=== PATIENT | male | born 1980 | race Caucasian/White ===

== ENCOUNTER 2017-06-17 17:59 | Inpatient (IN) | payer MEDICARE ==
[~2017-06-17] VITALS: Ht 175.3 cm; Wt 88.5 kg
--- NOTE | ~2017-06-17 | HP ---
Unit #: [id number] #: [id number] Patient: AJIT FITCH JR [id number] [place] [address] [id number] I MR#: [id number] NAME: AJIT FITCH JR ROOM: P113 Age: 37 Sex: M Admission Date: 06/17/2017 : 1980 Attending Physician: Viji Haynes M.D. Admitting Physician: Viji Haynes M.D. 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 PAST MEDICAL HISTORY None. PAST SURGICAL HISTORY He reports a chest surgery but does not elaborate. SOCIAL HISTORY He smokes two cigarettes daily. Drinks a six pack of beer weekly and daily use of heroin, marijuana and cocaine. He is currently single and living with his grandfather. FAMILY HISTORY Noncontributory. REVIEW OF SYSTEMS CONSTITUTIONAL: No fever or chills. HEENT: Denies any sore throat, ear pain or runny nose. CARDIOVASCULAR: Denies chest pain, irregular heart rhythm or palpitations. CHEST: Denies shortness of breath or cough. No hemoptysis. GASTROINTESTINAL: Denies nausea, vomiting, diarrhea or chronic constipation. ENDOCRINE: Denies history of increased thirst or urination. No recent significant weight loss or gain. GENITOURINARY: Denies dysuria, frequency, or hematuria. SKIN: Denies any rashes. HEMATOLOGIC: Denies history of increased bleeding or bruising. MUSCULOSKELETAL: Denies any hot, swollen joints. No generalized muscle pain. NEUROLOGIC: Denies problems with vision or speech. No frequent, severe headaches. No numbness, tingling or weakness in any extremities. Denies loss of bladder or bowel control. CURRENT MEDICATIONS Risperdal, lithium, Seroquel, Depakote. ALLERGIES Saphris Unit #: [id number] #: [id number] Patient: AJIT FITCH JR PHYSICAL EXAMINATION GENERAL: Alert, oriented, in no acute distress. VITAL SIGNS: Blood pressure 102/67, heart rate 88, respirations 18. HEIGHT: 5 foot 9 inches. WEIGHT: 195 pounds. SKIN: Warm and dry without rash or lesion. HEENT: Normocephalic. TMs not viewed. Oral and nasal passages clear. Conjunctivae clear. PERRLA. EOMs intact. NECK: Supple without lymphadenopathy or thyromegaly. HEART: Regular rate and rhythm without murmur. LUNGS: Clear. ABDOMEN: Soft, nontender, without masses or hepatosplenomegaly. : Not done. EXTREMITIES: No evidence of cyanosis, clubbing or edema. Moves all without focal deficit. NEUROLOGICAL: Grossly within normal limits. Cranial Nerves: II: Visual ansari are intact. III, IV AND : Extraocular movements are intact. Pupils are equal, round and reactive to light. V: Facial sensation is grossly normal. VII: Facial movements and expression are normal. VIII: Auditory acuity grossly intact. IX, X: Uvula is midline. Phonation is normal. XI: Patient shrugs shoulders and turns head normally. XII: Tongue protrudes in the midline. Sensory and Motor Function: Sensory and motor sensation is grossly normal. Motor: moves all extremities well. Coordination: Gait is normal. Deep Tendon Reflexes: Intact. IMPRESSION Psychiatric admission. RECOMMENDATIONS Psychiatric, per psychiatrist. MEDICAL: I see no contraindications to participating in facility's activities. MEDICAL PROGNOSIS Good. MEDICAL CONDITION Stable. Dictated by... Avni Garay/venita TD: 06/18/2017 20:04 JOB #: [id number] Unit #: [id number] #: [id number] Patient: AJIT FITCH JR HISTORY AND PHYSICAL Page 1 of 1 X DAVID AN APRN HISTORY AND PHYSICAL
--- NOTE | ~2017-06-17 | PN ---
Unit #: [id number] #: [id number] Patient: BRINA VÁZQUEZ JR [id number] [facility] [address] [place] [address] [id number] I MR#: [id number] NAME: BRINA VÁZQUEZ JR ROOM: P113 Age: 37 Sex: M Admission Date: 06/17/2017 : 1980 Attending Physician: Viji Haynes M.D. Admitting Physician: Viji Haynes M.D. Primary Care Physician: Primary Care Physician Keila CARVAJAL PROGRESS NOTES DATE June 24, 2017 DISCUSSION Mr. Vázquez is a 37-year-old white male, who was seen today and chart was reviewed and the case was discussed with the staff. He has been doing fairly well with no agitation or irritability, or behavioral problems, and has been cooperative with the treatment recommendations and he has been taking the medications and tolerating them fairly well. MENTAL STATUS EXAMINATION Young white male, who was casually dressed with fair personal hygiene and appears to be in no acute distress or discomfort. He was awake and alert with intact orientation. His mood is anxious with a congruent affect. He denies any suicidal or homicidal ideations. His insight and judgment remain slightly impaired. TREATMENT PLAN 1. We will continue him on his current medications and treatment protocol, and will monitor his response to the medications, and make further adjustments as needed. 2. We will continue to followup. Dictated by... Katherine Fischer/tee TD: 06/25/2017 05:50 JOB #: [id number] Unit #: [id number] #: [id number] Patient: BRINA VÁZQUEZ JR [facility] PROGRESS NOTES Page 1 of 1 X Viji Haynes MD PROGRESS NOTE
--- NOTE | ~2017-06-17 | PN ---
Unit #: [id number] #: [id number] Patient: BRINA VÁZQUEZ JR [id number] [facility] [address] [place] [address] [id number] I MR#: [id number] NAME: BRINA VÁZQUEZ JR ROOM: P113 Age: 37 Sex: M Admission Date: 06/17/2017 : 1980 Attending Physician: Viji Haynes M.D. Admitting Physician: Viji Haynes M.D. Primary Care Physician: Primary Care Physician Keila CARVAJAL PROGRESS NOTES DATE 06/22/2017 DISCUSSION Mr. áVzquez is a 37-year-old white male who was seen today and chart was reviewed and case was discussed with the staff. He has been anxious, withdrawn and rather seclusive to himself. Meanwhile, he has been cooperative with treatment recommendations and has been taking medications and tolerating them fairly well with no reported side effects. MENTAL STATUS EXAMINATION Young white male who was casually dressed with fair personal hygiene and appears to be in no acute distress or discomfort. He was awake and alert on interaction with intact orientation. His mood was anxious with congruent affect. He denies any suicidal or homicidal ideations. His insight and judgement remains slightly impaired. TREATMENT PLAN 1. Will continue on his current medications and treatment protocol. Will monitor his response to the medications and make further adjustments as needed. 2. Will continue to follow up. Dictated by... Viji Haynes M.D. IAA/vincenth TD: 06/22/2017 22:17 JOB #: [id number] Unit #: [id number] #: [id number] Patient: BRINA VÁZQUEZ JR PEACHRISTIANO PROGRESS NOTES Page 1 of 1 X Viji Haynes MD PROGRESS NOTE
--- NOTE | ~2017-06-17 | PN ---
Unit #: [id number] #: [id number] Patient: BRINA VÁZQUEZ JR [id number] [facility] [address] [place] [address] [id number] I MR#: [id number] NAME: BRINA VÁZQUEZ JR ROOM: P113 Age: 37 Sex: M Admission Date: 06/17/2017 : 1980 Attending Physician: Viji Haynes M.D. Admitting Physician: Viji Haynes M.D. Primary Care Physician: Primary Care Physician Keila PERRY NOTES DATE June 23, 2017 DISCUSSION Mr. Vázquez is a 37-year-old white male, with mood disorder and psychosis, who was seen today and chart was reviewed and the case was discussed with the staff. He has been anxious, withdrawn, and seclusive to himself. Meanwhile, he has been cooperative with the treatment recommendations, and he has been taking the medications and tolerating them fairly well with no reported side effects. MENTAL STATUS EXAMINATION Young white male, who was casually dressed with fair personal hygiene and appears to be in no acute distress or discomfort. He was awake and alert with impaired attention and concentration. His mood is anxious with a congruent affect. He denies any suicidal or homicidal ideations, and also denies any auditory or visual hallucinations. His thought processes are disorganized with some looseness of associations and paranoid ideations. His insight and judgment remain significantly impaired. TREATMENT PLAN 1. We will continue him on his current medications and treatment protocol, and will monitor his response to the medications, and make further adjustments as needed. 2. We will continue to followup. Dictated by... Katherine Fischer/tee TD: 06/24/2017 11:44 JOB #: [id number] Unit #: [id number] #: [id number] Patient: BRINA VÁZQUEZ JR ALENA PROGRESS NOTES Page 1 of 1 X Viji Haynes MD PROGRESS NOTE
--- NOTE | ~2017-06-17 | PN ---
Unit #: [id number] #: [id number] Patient: BRINA VÁZQUEZ JR [id number] [facility] [address] [place] [address] [id number] I MR#: [id number] NAME: BRINA VÁZQUEZ JR ROOM: P113 Age: 37 Sex: M Admission Date: 06/17/2017 : 1980 Attending Physician: Viji Haynes M.D. Admitting Physician: Viji Haynes M.D. Primary Care Physician: Primary Care Physician Kiela CARVAJAL PROGRESS NOTES DATE OF SERVICE 06/21/2017 DISCUSSION Mr. Vázquez is a 37-year-old white male who was seen today. Chart was reviewed and case was discussed with the staff. He has been anxious, withdrawn, and rather seclusive to himself. Meanwhile, he has been cooperative with the treatment recommendations and has been taking the medications and tolerating them fairly well with no reported side effects. MENTAL STATUS EXAMINATION Young white male who is casually dressed with fair personal hygiene, appears to be in no acute distress or discomfort. He was awake and alert with intact orientation. His mood is anxious with congruent affect. He denies any suicidal or homicidal ideations. His thought processes were disorganized with some looseness of associations and paranoid ideations. His insight and judgment remain significantly impaired. TREATMENT PLAN 1. We will continue him on his current medications and treatment protocol. We will monitor his response and make further adjustments as needed. 2. We will continue to follow up. Dictated by... Katherine Fischer/malik TD: 06/21/2017 10:44 JOB #: [id number] Unit #: [id number] #: [id number] Patient: BRINA VÁZQUEZ JR [facility] PROGRESS NOTES Page 1 of 1 X Viji Haynes MD PROGRESS NOTE
--- NOTE | ~2017-06-17 | PA ---
Unit #: [id number] #: [id number] Patient: BRINA VÁZQUEZ JR [id number] [facility] [address] [place] [address] [id number] I MR#: [id number] NAME: BRINA VÁZQUEZ JR ROOM: P113 Age: 37 Sex: M Admission Date: 06/17/2017 : 1980 Date of Assessment: Attending Physician: Viji Haynes M.D. Admitting Physician: Viji Haynes M.D. Primary Care Physician: Primary Care Physician No PSYCHIATRIC ASSESSMENT DATE OF SERVICE 06/18/2017. IDENTIFYING DATA Mr. Vázquez is a 37-year-old single white male, who is a resident of [place], [place], and was transferred to us from [facility] [place] [facility] Emergency Room. CHIEF COMPLAINT "I'm hearing voices." HISTORY OF PRESENT ILLNESS Mr. Vázquez is a 37-year-old white male with long history of chronic mental illness, who is known to us from previous encounter, was transferred to us from [facility] [place] [facility]. He presented with psychosis and depressive symptoms and reports that he has no friends, no food left, and no money left and that he called 911 from home today due to suicidal ideation with a plan to jump from a bridge and also reports anger and resentment toward family members at home and reports feeling like he is capable of hurting them, but denies any particular intent and plan. He reports that family members owe him money and he has history of auditory and visual hallucinations and currently reports seeing black flashes and hearing voices telling him to kill himself. He was seen to be exhibiting bizarre behavior on evaluation by me as he was pacing the hallways and was laughing inappropriately and was unable to carry on any meaningful conversation and has a long history of schizophrenia and appears to be decompensating primarily due to poor social support system and lack of compliance with treatment recommendations including medications. SUBSTANCE ABUSE HISTORY The patient denies any alcohol or drug abuse. PAST PSYCHIATRIC HISTORY The patient has had several inpatient psychiatric hospitalization over years, mostly at [facility] and has been diagnosed and treated for schizophrenia. Review of the medical records indicate that he is supposed to be on Risperdal, lithium, Depakote, and Seroquel, but has been noncompliant with medications and as such, has been decompensating. PAST MEDICAL HISTORY The patient's medical history is insignificant. ALLERGIES Unit #: [id number] #: [id number] Patient: BRINA VÁZQUEZ JR. PERSONAL AND SOCIAL HISTORY A 37-year-old white male, who reports that he is single, unemployed, and essentially homeless and has been living with his grandparents, but reports having poor social support system. MENTAL STATUS EXAMINATION Young white male, who was casually dressed with fair personal hygiene, appears to be in no acute distress or discomfort. He was awake and alert on interaction with intact orientation. His mood was anxious and depressed with a congruent affect. His speech was slow and restricted in content. His thought processes were disorganized with some looseness of associations and paranoid ideations and suicidal ideations. His insight and judgment remain significantly impaired. DIAGNOSTIC IMPRESSION Psychiatric: Chronic paranoid schizophrenia by history. Medical: None. Stressors: Moderate psychosocial stressors. TREATMENT PLAN 1. The patient has presented with a history of chronic mental illness and has been decompensating and will need inpatient hospitalization for safety and stabilization. We will start him back on his home medications and we will adjust the medications and monitor response. 2. Supportive therapy was provided to the patient. 3. Supportive therapy was provided to the patient. 4. Safe, structured, and nourishing environment will be provided. ESTIMATED LENGTH OF STAY 5 to 7 days. ABILITY TO HELP SELF Limited. WILLINGNESS TO HELP SELF The patient appears to be willing to help self. STRENGTHS 1. Communicative. 2. Cooperative. PROBLEMS 1. Chronic dysphoric symptoms. 2. Poor social support system. DISCHARGE CRITERIA This will be contingent upon the patient's ability to show resolution of his depression and psychosis and his ability to stay safe to himself, particularly after discharge from the hospital. Dictated by... Katherine Fischer/naga Unit #: [id number] #: [id number] Patient: BRINA VÁZQUEZ JR TD: 06/18/2017 14:56 JOB #: [id number] PSYCHIATRIC ASSESSMENT Page 1 of 1 X Viji Haynes MD X PSYCHIATRIC ASSESSMENT
--- NOTE | ~2017-06-17 | PN ---
Unit #: [id number] #: [id number] Patient: BRINA VÁZQUEZ JR [id number] [facility] [address] [place] [address] [id number] I MR#: [id number] NAME: BRINA VÁZQEUZ JR ROOM: P113 Age: 37 Sex: M Admission Date: 06/17/2017 : 1980 Attending Physician: Viji Haynes M.D. Admitting Physician: Viji Haynes M.D. Primary Care Physician: Primary Care Physician Keila CARVAJAL PROGRESS NOTES DATE OF SERVICE 06/27/2017 DISCUSSION Mr. Vázquez is a 37-year-old white male who was seen today. Chart was reviewed and case was discussed with staff. He has been anxious, withdrawn, and rather seclusive to himself. Meanwhile, he has been cooperative with treatment recommendations and has been taking the medications and tolerating them fairly well with no reported side effects. MENTAL STATUS EXAMINATION Young white male who is casually dressed with fair personal hygiene, appears to be in no acute distress or discomfort. The patient was awake and alert on interaction with intact orientation. His mood is anxious with congruent affect. His speech is slow and goal-directed. He denies any suicidal or homicidal ideations and also denies any auditory or visual hallucinations. His insight and judgment remain slightly impaired. TREATMENT PLAN 1. We will continue him on his current medications and treatment protocol. We will monitor his response to the medications and make further adjustments as needed. 2. We will continue to follow up. Dictated by... Katherine Fischer/malik TD: 06/27/2017 08:54 JOB #: [id number] Unit #: [id number] #: [id number] Patient: BRINA VÁZQUEZ JR PEACHRISTIANO PROGRESS NOTES Page 1 of 1 X Viji Haynes MD PROGRESS NOTE
--- NOTE | ~2017-06-17 | DS ---
Unit #: [id number] #: [id number] Patient: BRINA VÁZQUEZ JR [id number] [facility] [place] [address] [id number] I MR#: [id number] NAME: BRINA VÁZQUEZ JR ROOM: P113 Age: 37 Sex: M Admission Date: 06/17/2017 : 1980 Discharge Date: 06/28/2017 Attending Physician: Viji Haynes M.D. Primary Care Physician: Primary Care Physician No DISCHARGE SUMMARY IDENTIFYING DATA Mr. Vázquez is a 37-year-old single white male who is a resident of [place], [place] and was transferred to us from the emergency room. HISTORY OF PRESENT ILLNESS Please see initial psychiatric evaluation. PAST PSYCHIATRIC HISTORY Please see initial psychiatric evaluation. PAST MEDICAL HISTORY Please see initial psychiatric evaluation. HOSPITAL COURSE The patient was admitted to the adult psychiatric unit at [facility] dougie [facility] and was oriented to the hospital environment. Routine p.r.n. medications were initiated and started back on his home medications as he was seen to be on quite a bit of psychotropic medications, particularly combination antipsychotic which is consistent with his long history of chronic mental illness and failure to respond to most of the medications and even with those medications, he was still seen to be quite bizarre, disorganized. However, he was compliant and was not showing any tolerability issues and was rather seen to be calm and seclusive to himself but was not seen to be danger to self or anyone else and after observation and adjustment and regulation of the medications, it was decided that he will continue treatment on outpatient basis. DISCHARGE DIAGNOSES PSYCHIATRIC: Schizoaffective disorder, bipolar type, most recent episode depressed, recurrent, moderate, with psychosis. MEDICAL: None. STRESSORS: Mild psychosocial stressors. DISCHARGE MEDICATIONS 1. Risperdal 3 mg b.i.d. for bipolar. 2. Seroquel 100 mg t.i.d. for bipolar. 3. [place] 300 mg b.i.d. for bipolar. 4. Depakote 500 mg t.i.d. for bipolar. 5. Artane 2 mg t.i.d. for EPS. Unit #: [id number] #: [id number] Patient: VÁZQUEZ JR,BRINA W CONDITION AT DISCHARGE Stable. PROGNOSIS Fair. Dictated by... Katherine Fischer/reggie TD: 06/29/2017 16:24 JOB #: [id number] DISCHARGE SUMMARY Page 1 of 1 X Viji Haynes MD X DISCHARGE SUMMARY
--- NOTE | ~2017-06-17 | PN ---
Unit #: [id number] #: [id number] Patient: BRINA VÁZQUEZ JR [id number] [facility] [address] [place] [address] [id number] I MR#: [id number] NAME: BRINA VÁZQUEZ JR ROOM: P113 Age: 37 Sex: M Admission Date: 06/17/2017 : 1980 Attending Physician: Viji Haynes M.D. Admitting Physician: Viji Haynes M.D. Primary Care Physician: Primary Care Physician Keila CARVAJAL PROGRESS NOTES DATE 06/26/2017 DISCUSSION Mr. Vázquez is a 37-year-old white male who was seen today and chart was reviewed and case was discussed with the staff. He has been anxious, withdrawn and rather seclusive to himself. Meanwhile, he has been cooperative with treatment recommendations and has been taking medications and tolerating them fairly well with no reported side effects. MENTAL STATUS EXAMINATION Young white male who was casually dressed with fair personal hygiene and appears to be in no acute distress or discomfort. He was awake and alert on interaction with intact orientation. His mood was anxious with congruent affect. His speech is slow and tangential. His thought processes were disorganized with some looseness of associations and flight of ideas. His insight and judgement remains significantly impaired. TREATMENT PLAN 1. Will continue on current medications and treatment protocol. Will monitor her response to the medications and make further adjustments as needed. 2. Will continue to follow up. Dictated by... Katherine Fischer/reggie TD: 06/26/2017 18:10 JOB #: [id number] Unit #: [id number] #: [id number] Patient: BRINA VÁZQUEZ JR ALENA PROGRESS NOTES Page 1 of 1 X Viji Haynes MD PROGRESS NOTE
--- NOTE | ~2017-06-17 | PN ---
Unit #: [id number] #: [id number] Patient: BRINA VÁZQUEZ JR [id number] [facility] [address] [place] [address] [id number] I MR#: [id number] NAME: BRINA VÁZQUEZ JR ROOM: P113 Age: 37 Sex: M Admission Date: 06/17/2017 : 1980 Attending Physician: Viji Haynes M.D. Admitting Physician: Viji Haynes M.D. Primary Care Physician: Primary Care Physician Keila CARVAJAL PROGRESS NOTES DATE OF SERVICE 06/19/2017 DISCUSSION Mr. Vázquez is a 37-year-old white male who was seen today. Chart was reviewed and case was discussed with the staff. He remains anxious, withdrawn, and rather seclusive to himself. Meanwhile, he has been cooperative and has been pacing the hallways and has been exhibiting bizarre behavior. MENTAL STATUS EXAMINATION Young white male who is casually dressed with fair personal hygiene, appears to be in no acute distress or discomfort. The patient was awake and alert with impaired attention and concentration. His mood is anxious with congruent affect. Speech is slow and restricted in content. He denies any suicidal or homicidal ideations and also denies any auditory or visual hallucinations. His insight and judgment remain slightly impaired. TREATMENT PLAN 1. We will continue him on his current medications and treatment protocol. We will monitor his response to the medications and make further adjustments as needed. 2. We will continue to follow up. Dictated by... Katherine Fischer/malik TD: 06/19/2017 08:31 JOB #: [id number] Unit #: [id number] #: [id number] Patient: BRINA VÁZQUEZ JR [facility] PROGRESS NOTES Page 1 of 1 X Viji Haynes MD PROGRESS NOTE
--- NOTE | ~2017-06-17 | PN ---
Unit #: [id number] #: [id number] Patient: BRINA VÁZQUEZ JR [id number] [facility] [address] [place] [address] [id number] I MR#: [id number] NAME: BRINA VÁZQUEZ JR ROOM: P113 Age: 37 Sex: M Admission Date: 06/17/2017 : 1980 Attending Physician: Viji Haynes M.D. Admitting Physician: Viji Haynes M.D. Primary Care Physician: Primary Care Physician Keila CARVAJAL PROGRESS NOTES DATE OF SERVICE 06/20/2017 DISCUSSION Mr. Vázquez is a 37-year-old white male who was seen today. Chart was reviewed and case was discussed with the staff. He has been anxious, withdrawn, and rather seclusive to himself. He has been cooperative with the treatment recommendations as he has been taking the medications and tolerating them fairly well with no reported side effects. MENTAL STATUS EXAMINATION Young white male who is casually dressed with fair personal hygiene, appears to be in no acute distress or discomfort. He was awake and alert with impaired attention and concentration. His mood is anxious with congruent affect. Speech is slow and goal-directed. He denies any suicidal or homicidal ideations and also denies any auditory or visual hallucinations. His insight and judgment remain slightly impaired. TREATMENT PLAN 1. We will continue him on his current medications and treatment protocol. We will monitor his response to the medications and make further adjustments as needed. 2. We will continue to follow up. Dictated by... Katherine Fischer/malik TD: 06/20/2017 13:32 JOB #: [id number] Unit #: [id number] #: [id number] Patient: BRINA VÁZQUEZ JR [facility] PROGRESS NOTES Page 1 of 1 X Viji Haynes MD PROGRESS NOTE
--- NOTE | ~2017-06-17 | PN ---
Unit #: [id number] #: [id number] Patient: BRINA VÁZQUEZ JR [id number] [facility] [address] [place] [address] [id number] I MR#: [id number] NAME: BRINA VÁZQUEZ JR ROOM: P113 Age: 37 Sex: M Admission Date: 06/17/2017 : 1980 Attending Physician: Viji Haynes M.D. Admitting Physician: Viji Haynes M.D. Primary Care Physician: Primary Care Physician Keila CARVAJAL PROGRESS NOTES DATE OF SERVICE: 06/25/2017 SUBJECTIVE Mr. Vázquez is a 37-year-old white male, who was seen today and chart was reviewed and the case was discussed with the staff. He has been doing fairly well with no agitation, irritability and has been pacing the hallways; however, no physical aggression has been reported. Meanwhile, he has been taking medications and tolerating them fairly well with no reported side effects. MENTAL STATUS EXAMINATION Young white male who was casually dressed with fair personal hygiene, appears to be in no acute distress or discomfort. He was awake and alert on interaction with intact orientation. His mood was anxious with a congruent affect. He denies any suicidal or homicidal ideations. His insight and judgment remain slightly impaired. TREATMENT PLAN 1. We will continue him on his current medications and treatment protocol. We will monitor his response to the medications and make further adjustments as needed. 2. We will continue to follow up. Dictated by... Katherine Fischer/naga TD: 06/25/2017 08:20 JOB #: [id number] Unit #: [id number] #: [id number] Patient: BRINA VÁZQUEZ JR [facility] PROGRESS NOTES Page 1 of 1 X Viji Haynes MD PROGRESS NOTE
[2017-06-19 12:23] LABS: BASOPHIL# 0.1 X10e3 (0-0.3); BASOPHIL% 0.9 % (0-2.5); DIFF IND NO; EOSINOPHIL# 0.2 X10e3 (0-0.7); EOSINOPHIL% 2.1 % (0.0-7.0); HEMOGLOBIN 13.7 gm/dL (13.0-16.0); LYMPHOCYTE# 2.3 X10e3 (1.0-3.5); LYMPHOCYTE% 28.4 % (17.0-45.0); MEAN CELL VOLUME 90.3 FL (83-96); MEAN CORPUSCULAR HEMOGLOBIN 30.2 PG (28-34); MEAN CORPUSCULAR HGB CONC 33.5 g/dL (30-36); MEAN PLATELET VOLUME 8.5 FL (6.5-11.5); MONOCYTE# 0.5 X10e3 (0-1.0); MONOCYTE% 6.2 % (3.0-12.0); NEUTROPHIL# 5.1 X10e3 (1.5-7.1); NEUTROPHIL% 62.4 % (40-75); PLATELET COUNT 195 X10e3 (140-420); RED BLOOD COUNT 4.54 X10e (3.90-5.60); RED CELL DISTRIBUTION WIDTH 13.9 % (11.0-15.5); WHITE BLOOD COUNT 8.2 X10e3 (4.0-10.5)
[2017-06-19 12:34] LABS: ALBUMIN SERUM 3.6 g/dL (3.5-5.0); BILIRUBIN,TOTAL 0.3 mg/dL (0.2-2.0); BUN/CREATININE RATIO 16.25; CALCIUM SERUM 8.8 mg/dL (8.4-10.2); CREATININE SERUM 0.8 mg/dL (0.6-1.4); GLOM FILT RATE Estimated 115.8 mL/min (>60); POTASSIUM 4.7 mmol/L (3.5-5.1); PROTEIN TOTAL SERUM 6.1 g/dL (6.0-8.3)
== END 2017-06-28 09:52 | disposition home or self-care (01) | DRG 885 ==
LOC: P1S 20:43
PROVIDERS: Psychiatry & Neurology Psychiatry
DX: F25.0 Schizoaffective disorder, bipolar type (principal); R45.851 Suicidal ideations; F17.210 Nicotine dependence, cigarettes, uncomplicated
CPT/HCPCS: 80053; 85025

== ENCOUNTER 2017-07-23 09:00 | Inpatient (IN) | payer MEDICARE, OTHER ==
[~2017-07-23] VITALS: Ht 175.3 cm; Wt 94.3 kg
--- NOTE | ~2017-07-23 | PN ---
Unit #: [id number] #: [id number] Patient: BRINA VÁZQUEZ JR [id number] [facility] [address] [place] [address] [id number] I MR#: [id number] NAME: BRINA VÁZQUEZ JR ROOM: P110 Age: 37 Sex: M Admission Date: 07/23/2017 : 1980 Attending Physician: Viji Haynes M.D. Admitting Physician: Viji Haynes M.D. Primary Care Physician: Primary Care Physician No ALENA PROGRESS NOTES DATE OF SERVICE 07/27/2017 DISCUSSION Mr. Vázquez is a 37-year-old white male who was seen today. Chart was reviewed and case was discussed with the staff. He has been anxious, withdrawn, and rather seclusive to himself. Meanwhile, he has been cooperative with the treatment recommendations and has been taking the medications and tolerating them fairly well with no reported side effects. MENTAL STATUS EXAMINATION Young white male who is casually dressed with fair personal hygiene, appears to be in no acute distress or discomfort. He was awake and alert on interaction with intact orientation. His mood is anxious with congruent affect. He denies any suicidal or homicidal ideations. His insight and judgment remain slightly impaired. TREATMENT PLAN 1. We will continue him on his current medications and treatment protocol. We will monitor his response to the medications and make further adjustments as needed. 2. We will continue to follow up. Dictated by... Viji Haynes M.D. IAA/malik TD: 07/27/2017 16:10 JOB #: [id number] [facility] PROGRESS NOTES Page 1 of 1 X Viji Haynes MD X PROGRESS NOTE
--- NOTE | ~2017-07-23 | PN ---
Unit #: [id number] #: [id number] Patient: BRINA VÁZQUEZ JR [id number] [facility] [address] [place] [address] [id number] I MR#: [id number] NAME: BRINA VÁZQUEZ JR ROOM: P121 Age: 37 Sex: M Admission Date: 07/23/2017 : 1980 Attending Physician: Viji Haynes M.D. Admitting Physician: Viji Haynes M.D. Primary Care Physician: Primary Care Physician Keila CARVAJAL PROGRESS NOTES DATE OF SERVICE 07/25/2017 DISCUSSION Mr. Vázquez is a 37-year-old white male who was seen today. Chart was reviewed and case was discussed with the staff. He has been anxious, withdrawn, and rather seclusive to himself. Meanwhile, he has been cooperative with the treatment recommendations and has been taking the medications and tolerating them fairly well with no reported side effects. MENTAL STATUS EXAMINATION Young white male who is casually dressed with fair personal hygiene, appears to be in no acute distress or discomfort. He was awake and alert on interaction with intact orientation. His mood is anxious with congruent affect. His speech is slow and goal-directed. He denies any suicidal or homicidal ideation. We will also denies any auditory or visual hallucinations. His insight and judgment remain slightly impaired. TREATMENT PLAN 1. We will continue him on his current medications and treatment protocol. We will monitor his response and make further adjustments as needed. 2. We will continue to follow up. Dictated by... Katherine Fischer/malik TD: 07/25/2017 11:05 JOB #: [id number] Unit #: [id number] #: [id number] Patient: BRINA VÁZQUEZ JR [facility] PROGRESS NOTES Page 1 of 1 X Viji Haynes MD PROGRESS NOTE
--- NOTE | ~2017-07-23 | PN ---
Unit #: [id number] #: [id number] Patient: BRINA VÁZQUEZ JR [id number] [facility] [address] [place] [address] [id number] I MR#: [id number] NAME: BRINA VÁZQUEZ JR ROOM: P110 Age: 37 Sex: M Admission Date: 07/23/2017 : 1980 Attending Physician: Viji Haynes M.D. Admitting Physician: Viji Haynes M.D. Primary Care Physician: Primary Care Physician Keila CARVAJAL PROGRESS NOTES DATE OF SERVICE: 07/31/2017 SUBJECTIVE Mr. Vázquez is a 37-year-old white male, who was seen today and chart was reviewed, and case was discussed with the staff. He has been anxious, withdrawn, and rather seclusive to himself. Meanwhile, he has been cooperative with treatment recommendation and has been taking medications and tolerating them fairly well with no reported side effects. MENTAL STATUS EXAMINATION Young white male who was casually dressed with fair personal hygiene, appears to be in no acute distress or discomfort. He was awake and alert on interaction with intact orientation. His mood was anxious with a congruent affect. He denies any suicidal or homicidal ideations. His insight and judgment remain slightly impaired. TREATMENT PLAN 1. We will continue on his current medications and treatment protocol. We will monitor his response to medications and make further adjustments as needed. 2. We will continue to follow up. Dictated by... Katherine Fischer/naga TD: 08/01/2017 01:53 JOB #: [id number] [facility] PROGRESS NOTES Page 1 of 1 X Viji Haynes MD X PROGRESS NOTE
--- NOTE | ~2017-07-23 | PN ---
Unit #: [id number] #: [id number] Patient: BRINA VÁZQUEZ JR [id number] [facility] [address] [place] [address] [id number] I MR#: [id number] NAME: BRINA VÁZQUEZ JR ROOM: P110 Age: 37 Sex: M Admission Date: 07/23/2017 : 1980 Attending Physician: Viji Haynes M.D. Admitting Physician: Viji Haynes M.D. Primary Care Physician: Primary Care Physician Keila CARVAJAL PROGRESS NOTES DATE OF SERVICE 07/26/2017 DISCUSSION Mr. Vázquez is a 37-year-old white male who was seen today. Chart was reviewed and case was discussed with the staff. He has been anxious and withdrawn though has not shown any agitation or irritability and has been cooperative with treatment recommendations as he has been taking the medications and tolerating them fairly well with no reported side effects. MENTAL STATUS EXAMINATION Young white male who is casually dressed with fair personal hygiene, appears to be in no acute distress or discomfort. He was awake and alert on interaction with intact orientation. His mood is anxious with congruent affect. His speech is slow and goal-directed. He denies any suicidal or homicidal ideations and also denies any auditory or visual hallucinations. His insight and judgment remain slightly impaired. TREATMENT PLAN 1. We will continue him on his current medications and treatment protocol. We will monitor his response to the medications and make further adjustments as needed. 2. We will continue to follow up. Dictated by... Katherine Fischer/malik TD: 07/26/2017 11:28 JOB #: [id number] Unit #: [id number] #: [id number] Patient: BRINA VÁZQUEZ JR [facility] PROGRESS NOTES Page 1 of 1 X Viji Haynes MD X PROGRESS NOTE
--- NOTE | ~2017-07-23 | HP ---
Unit #: [id number] #: [id number] Patient: AJIT FITCH JR [id number] [place] [address] [id number] I MR#: [id number] NAME: AJIT FITCH JR ROOM: P121 Age: 37 Sex: M Admission Date: 07/23/2017 : 1980 Attending Physician: Viji Haynes M.D. Admitting Physician: Viji Haynes M.D. Primary Care Physician: Primary Care Physician No HISTORY AND PHYSICAL HISTORY OF PRESENT ILLNESS Ajit is a 37 year old admitted to [address] [place] [address] with psychotic behavior. He has had numerous admissions to this facility. He is a poor historian so his history is taken from his chart. PAST MEDICAL HISTORY Nothing significant. PAST SURGICAL HISTORY Left shoulder after a dislocation. ALLERGIES Saphris. SOCIAL HISTORY He smokes on occasion. Drinks alcohol and has a history of marijuana use. FAMILY HISTORY Medically noncontributory. REVIEW OF SYSTEMS He does not answer questions appropriately. There are no reports of nausea, vomiting or diarrhea. He has had no cough or increased temperature. CURRENT MEDICATIONS 1. Depakote 500 mg b.i.d. 2. [place] 300 mg b.i.d. 3. Risperdal 3 mg b.i.d. 4. Artane 2 mg t.i.d. 5. Seroquel 100 mg t.i.d. 6. Milk of Magnesia p.r.n. 7. Maalox p.r.n. 8. Tylenol p.r.n. 9. Nicotine patch 14 mg daily. PHYSICAL EXAMINATION GENERAL: Alert, well-nourished, in no apparent distress. VITAL SIGNS: Blood pressure 110/64, heart rate 80, respirations 16, temperature 98.6. WEIGHT: 208. HEIGHT: 5 feet 9 inches. SKIN: Warm and dry without rash or lesion. HEENT: Normocephalic. TMs not viewed. Oral and nasal passages clear. Unit #: [id number] #: [id number] Patient: AJIT FITCH JR Conjunctivae clear. PERRLA. EOMs intact. NECK: Supple without lymphadenopathy or thyromegaly. HEART: Regular rate and rhythm without murmur. LUNGS: Clear. ABDOMEN: Soft, nontender. : Not done. EXTREMITIES: No evidence of cyanosis, clubbing or edema. Moves all without focal deficit. NEUROLOGICAL: Unable to complete extended exam. He does move all extremities without focal deficit. Hand cranberry grower is equal and gait is normal. IMPRESSION Psychiatric admission. RECOMMENDATIONS PSYCHIATRIC: Per psychiatrist. MEDICAL: See no contraindication to participate in facility's activities. MEDICAL PROGNOSIS Good. MEDICAL CONDITION Stable. Dictated by... Ann Reilly P.A.-C. for Katherine Xie/reggie TD: 07/23/2017 17:30 JOB #: [id number] HISTORY AND PHYSICAL Page 1 of 1 X Ann Reilly PA X HISTORY AND PHYSICAL
--- NOTE | ~2017-07-23 | PN ---
Unit #: [id number] #: [id number] Patient: BRINA VÁZQUEZ JR [id number] [facility] [address] [place] [address] [id number] I MR#: [id number] NAME: BRINA VÁZQUEZ JR ROOM: P110 Age: 37 Sex: M Admission Date: 07/23/2017 : 1980 Attending Physician: Viji Haynes M.D. Admitting Physician: Viji Haynes M.D. Primary Care Physician: Primary Care Physician Keila CARVAJAL PROGRESS NOTES DATE 07/30/2017 DISCUSSION Mr. Vázquez is a 37-year-old white male who was seen today and chart was reviewed and case was discussed with the staff. He has been anxious, withdrawn and rather seclusive to himself. Meanwhile, he has been cooperative with treatment recommendations and has been taking medications and tolerating them fairly well with no reported side effects. MENTAL STATUS EXAMINATION Young white male who was casually dressed with fair personal hygiene and appears to be in no acute distress or discomfort. He was awake and alert with impaired attention and concentration. His mood was anxious with congruent affect. His speech is slow and restricted in content. His insight and judgement remains significantly impaired. TREATMENT PLAN 1. Will continue on his current medications and treatment protocol. Will monitor his response to the medications and make further adjustments as needed. 2. Will continue to follow up. Dictated by... Viji Haynes M.D. IAA/reggie TD: 07/30/2017 20:52 JOB #: [id number] Unit #: [id number] #: [id number] Patient: BRINA VÁZQUEZ JR [facility] PROGRESS NOTES Page 1 of 1 X Viji Haynes MD X PROGRESS NOTE
--- NOTE | ~2017-07-23 | PN ---
Unit #: [id number] #: [id number] Patient: BRINA VÁZQUEZ JR [id number] [facility] [address] [place] [address] [id number] I MR#: [id number] NAME: BRINA VÁZQUEZ JR ROOM: P110 Age: 37 Sex: M Admission Date: 07/23/2017 : 1980 Attending Physician: Viji Haynes M.D. Admitting Physician: Viji Haynes M.D. Primary Care Physician: Primary Care Physician No [facility] PROGRESS NOTES DATE July 28, 2017 DISCUSSION Mr. Vázquez is a 37-year-old white male, who was seen today and chart was reviewed and the case was discussed with the staff. He has been anxious, withdrawn, and rather seclusive to himself but has not shown any agitation or aggression. He has been cooperative with the treatment recommendations, and he has been taking the medications and tolerating them fairly well. MENTAL STATUS EXAMINATION Young white male, who was casually dressed with fair personal hygiene and appears to be in no acute distress or discomfort. He was awake and alert with intact orientation. His mood is anxious with a congruent affect. He denies any suicidal or homicidal ideations. His insight and judgment remain slightly impaired. TREATMENT PLAN 1. We will continue him on his current treatment protocol, and will monitor his response to the medications, and make further adjustments as needed. 2. We will continue to followup. Dictated by... Katherine Fischer/tee TD: 07/30/2017 10:09 JOB #: [id number] Unit #: [id number] #: [id number] Patient: BRINA VÁZQUEZ JR [facility] PROGRESS NOTES Page 1 of 1 X Viji Haynes MD X PROGRESS NOTE
--- NOTE | ~2017-07-23 | PN ---
Unit #: [id number] #: [id number] Patient: BRINA VÁZQUEZ JR [id number] [facility] [address] [place] [address] [id number] I MR#: [id number] NAME: BRINA VÁZQUEZ JR ROOM: P110 Age: 37 Sex: M Admission Date: 07/23/2017 : 1980 Attending Physician: Viji Haynes M.D. Admitting Physician: Viji Haynes M.D. Primary Care Physician: Primary Care Physician Keila CARVAJAL PROGRESS NOTES DATE OF SERVICE: 07/29/2017 SUBJECTIVE Mr. Vázquez is a 37-year-old white male with mood disorder and psychosis, who was seen today and chart was reviewed, and case was discussed with the staff. He has been anxious, withdrawn, and rather seclusive to himself. Meanwhile, he has been cooperative with treatment recommendations and has been taking medications and tolerating them fairly well with no reported side effects. MENTAL STATUS EXAMINATION Young white male who was casually dressed with fair personal hygiene, appears to be in no acute distress or discomfort. He was awake and alert on interaction with intact orientation. His mood was anxious with a congruent affect. His speech was slow and goal directed. He denies any suicidal or homicidal ideation and also denies any auditory or visual hallucinations. His insight and judgment remain slightly impaired. TREATMENT PLAN 1. We will continue on his current medications and treatment protocol. We will monitor his response and make further adjustments as needed. 2. We will continue to follow up. Dictated by... Katherine Fischer/naga TD: 07/31/2017 02:20 JOB #: [id number] [facility] PROGRESS NOTES Page 1 of 1 X Viji Haynes MD PROGRESS NOTE
--- NOTE | ~2017-07-23 | PA ---
Unit #: [id number] #: [id number] Patient: BRINA VÁZQUEZ JR [id number] [facility] [address] [place] [address] [id number] I MR#: [id number] NAME: BRINA VÁZQUEZ JR ROOM: P121 Age: 37 Sex: M Admission Date: 07/23/2017 : 1980 Date of Assessment: 07/23/2017 Attending Physician: Viji Haynes M.D. Admitting Physician: Viji Haynes M.D. Primary Care Physician: Primary Care Physician No PSYCHIATRIC ASSESSMENT DATE OF SERVICE 07/23/2017. IDENTIFYING DATA Mr. Vázquez is a 37-year-old single, disabled, white male with long history of chronic mental illness, who is known to us from previous encounter and is a resident of [place], [place], and was self-referred to the hospital on a voluntary basis. CHIEF COMPLAINT "I've been staying in [place] since Saturday and it is just a cultural shock." HISTORY OF PRESENT ILLNESS Mr. 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 My medication makes me feel drowsy and I have been suicidal and have had thoughts about overdosing and I don't know if I will do it or not. I don't feel that I would do that, though I just don't like the way things are going. I have been hearing things. I have been conversating with the voices in my head. They have been putting me down, that is about it. I used to smoke marijuana, I found a nuñez by the bus stop." The patient was seen to be acutely psychotic upon presentation with increasing depression, psychosis, hallucinations, and suicidal ideation and was seen to be a danger to self and therefore, recommendation for inpatient level of care was made and the patient was stepped up to the inpatient unit. SUBSTANCE ABUSE HISTORY The patient reports occasional experimentation with alcohol and cannabis, but denies any regular drug abuse. PAST PSYCHIATRIC HISTORY The patient has had a history of multiple and numerous inpatient psychiatric hospitalizations at [facility] and has been diagnosed and treated with schizoaffective disorder. Review of the medical records indicate currently he is on a combination of Risperdal, lithium, Seroquel, and Depakote, though it is not clear if he has been compliant with the medications. PAST MEDICAL HISTORY Unit #: [id number] #: [id number] Patient: BRINA VÁZQUEZ JR The patient's medical history is insignificant. ALLERGIES Saphris. PERSONAL AND SOCIAL HISTORY A 37-year-old white male, who reports that he is single, unemployed, and has been living in a homeless custodial and has poor social support system. MENTAL STATUS EXAMINATION Young white male, who was casually dressed with fair personal hygiene, appears to be in no acute distress or discomfort. He was awake and alert on interaction with intact orientation to time, place, and person. His mood was anxious and depressed with a congruent affect. His speech was slow and restricted in content. His thought processes were disorganized with some looseness of associations and flight of ideas and paranoid ideations and delusional behavior and suicidal ideations. His insight and judgment remain significantly impaired. DIAGNOSTIC IMPRESSION Psychiatric: Schizoaffective disorder, bipolar type, most recent episode depressed, recurrent, moderate, with psychosis. Medical: None. Stressors: Moderate psychosocial stressors. TREATMENT PLAN 1. The patient has presented with a history of mood disorder and psychosis and has been decompensating and will need inpatient hospitalization for safety and stabilization. We will start him back on his home medications and monitor response and make further adjustments as needed. 2. Supportive therapy was provided to the patient. 3. Safe, structured, and nourishing environment will be provided. ESTIMATED LENGTH OF STAY 5 to 7 days. ABILITY TO HELP SELF Limited. WILLINGNESS TO HELP SELF The patient appears to be willing to help self. STRENGTHS 1. Communicative. 2. Cooperative. PROBLEMS 1. Chronic dysphoric symptoms. 2. Poor social support system. DISCHARGE CRITERIA This will be contingent upon the patient's ability to show resolution of his depression and anxiety and his ability to stay safe to himself, particularly after discharge from the hospital. Dictated by... Unit #: [id number] #: [id number] Patient: BRINA VÁZQUEZ JR, M.D. IAA/naga TD: 07/24/2017 20:39 JOB #: [id number] PSYCHIATRIC ASSESSMENT Page 1 of 1 X Viji Hayens MD PSYCHIATRIC ASSESSMENT
--- NOTE | ~2017-07-23 | DS ---
Unit #: [id number] #: [id number] Patient: BRINA VÁZQUEZ JR [id number] [facility] [address] [id number] I MR#: [id number] NAME: BRINA VÁZQUEZ JR ROOM: P110 Age: 37 Sex: M Admission Date: 07/23/2017 : 1980 Discharge Date: 08/01/2017 Attending Physician: Viji Haynes M.D. Primary Care Physician: Primary Care Physician No DISCHARGE SUMMARY IDENTIFICATION DATA Mr. Vázquez is a 37-year-old single disabled white male who is a resident of [place], [place], and was self-referred to the hospital. DISCHARGE DIAGNOSES PSYCHIATRIC: Schizoaffective disorder, bipolar type, recent episode, depressed, recurrent, moderate, with psychosis. MEDICAL: None. STRESSORS: Mild psychosocial stressors. HISTORY OF PRESENT ILLNESS Same as in initial psychiatric evaluation. PAST PSYCHIATRIC HISTORY Same as in initial psychiatric evaluation. PAST MEDICAL HISTORY Same as in initial psychiatric evaluation. HOSPITAL COURSE The patient was admitted to the adult psychiatric unit at [facility] dougie Ramos and was oriented to the hospital environment. Routine p.r.n. medications were initiated, and he was started back on his home medications including his Risperdal and lithium, and lithium was actually increased to 450 mg twice a day, and he was closely monitored. Depakote was maintained, and he was seen to be doing much better and was calm and cooperative, and compliant with treatment recommendations. As such it was decided that she will be discharged home. We will continue treatment on outpatient basis. DISCHARGE MEDICATIONS 1. Depakote 500 mg twice a day. 2. Trail 450 mg twice a day for bipolar. 3. Risperdal 3 mg twice a day for bipolar. CONDITION AT DISCHARGE Stable. PROGNOSIS Fair. Dictated by... Unit #: [id number] #: [id number] Patient: BRINA VÁZQUEZ JR Viji Haynes M.D. IAA/bzg TD: 08/01/2017 07:13 JOB #: [id number] DISCHARGE SUMMARY Page 1 of 1 X Viji Haynes MD DISCHARGE SUMMARY
--- NOTE | ~2017-07-23 | PN ---
Unit #: [id number] #: [id number] Patient: BRINA VÁZQUEZ JR [id number] [facility] [address] [place] [address] [id number] I MR#: [id number] NAME: BRINA VÁZQUEZ JR ROOM: P121 Age: 37 Sex: M Admission Date: 07/23/2017 : 1980 Attending Physician: Viji Haynes M.D. Admitting Physician: Viji Haynes M.D. Primary Care Physician: Primary Care Physician Keila YANESCE PROGRESS NOTES DATE July 24, 2017 DISCUSSION Mr. Vázquez is a 37-year-old white male, who was seen today and chart was reviewed and the case was discussed with the staff. He has been anxious, withdrawn, depressed, and rather seclusive to himself. Meanwhile, he has not shown any agitation or any aggression and has been cooperative with the treatment recommendations and he has been taking the medications and tolerating them fairly well with no reported side effects. MENTAL STATUS EXAMINATION Young white male, who was casually dressed with fair personal hygiene and appears to be in no acute distress or discomfort. He was awake and alert on interaction with intact orientation. His mood is anxious with a congruent affect. His speech is slow and goal-directed. He denies any suicidal or homicidal ideations, and also denies any auditory or visual hallucinations. His insight and judgment remain slightly impaired. TREATMENT PLAN 1. We will continue him on his current medications and treatment protocol, and will monitor his response to the medications, and make further adjustments as needed. 2. We will continue to followup. Dictated by... Katherine Fischer/tee TD: 07/24/2017 12:24 JOB #: [id number] Unit #: [id number] #: [id number] Patient: BRINA VÁZQUEZ JR [facility] PROGRESS NOTES Page 1 of 1 X Viji Haynes MD PROGRESS NOTE
[2017-07-24 09:45] LABS: BASOPHIL# 0.1 X10e3 (0-0.3); BASOPHIL% 0.8 % (0-2.5); EOSINOPHIL# 0.1 X10e3 (0-0.7); HEMATOCRIT 42.8 % (38.0-50.0); HEMOGLOBIN 14.4 gm/dL (13.0-16.0); LYMPHOCYTE# 2.4 X10e3 (1.0-3.5); LYMPHOCYTE% 37.4 % (17.0-45.0); MEAN CORPUSCULAR HEMOGLOBIN 30.7 PG (28-34); MEAN CORPUSCULAR HGB CONC 33.7 g/dL (30-36); MEAN PLATELET VOLUME 8.4 FL (6.5-11.5); MONOCYTE# 0.6 X10e3 (0-1.0); MONOCYTE% 8.9 % (3.0-12.0); NEUTROPHIL# 3.3 X10e3 (1.5-7.1); NEUTROPHIL% 50.9 % (40-75); PLATELET COUNT 216 X10e3 (140-420); RED BLOOD COUNT 4.71 X10e (3.90-5.60); RED CELL DISTRIBUTION WIDTH 14.3 % (11.0-15.5); WHITE BLOOD COUNT 6.5 X10e3 (4.0-10.5)
[2017-07-24 10:06] LABS: ALBUMIN SERUM 3.6 g/dL (3.5-5.0); BILIRUBIN,TOTAL 0.6 mg/dL (0.2-2.0); BUN/CREATININE RATIO 16.25; CALCIUM SERUM 9.1 mg/dL (8.4-10.2); CREATININE SERUM 0.8 mg/dL (0.6-1.4); DIFF IND NO; GLOM FILT RATE Estimated 115.8 mL/min (>60); POTASSIUM 4.4 mmol/L (3.5-5.1); PROTEIN TOTAL SERUM 6.4 g/dL (6.0-8.3)
[2017-07-28 11:19] LABS: URINE APPEARANCE CLEAR; URINE BILIRUBIN NEG (NEG); URINE BLOOD NEG (NEG); URINE COLOR YELLOW; URINE GLUCOSE NEG (NEG); URINE KETONE NEG (NEG); URINE LEUKOCYTE ESTERASE NEG (NEG); URINE NITRATE NEG (NEG); URINE PROTEIN NEG (NEG); URINE SPECIFIC GRAVITY 1.025 (1.003-1.035)
[2017-07-28 11:55] LABS: AMPHETAMINE NEG (NEG); BARBITURATES NEG (NEG); BENZODIAZEPINES NEG (NEG); COCAINE NEG (NEG); MARIJUANA NEG (NEG); OPIATES NEG (NEG); TRICYCLIC ANTIDEPRESSANTS POS (NEG); U METHADONE NEG (NEG)
== END 2017-08-01 09:30 | disposition home or self-care (01) | DRG 885 ==
LOC: P1S 10:18
PROVIDERS: Psychiatry & Neurology Psychiatry
DX: F25.0 Schizoaffective disorder, bipolar type (principal); R45.851 Suicidal ideations; Z59.0 Homelessness; Z72.0 Tobacco use
CPT/HCPCS: 80053; 80164; 80307; 81003; 85025